=== PATIENT | female | born 1975 | race African-American/Black ===

== ENCOUNTER 2023-10-04 13:00 | Outpatient (RCR) | payer BC, SELFPAY | END 2023-11-30 11:37 | disposition home or self-care (01) | LOC: ANHDMC 13:00 | PROVIDERS: Visit Provider Nurse Practitioner Family | DX: E11.9 Type 2 diabetes mellitus without complications (principal); Z71.89 Other specified counseling | CPT/HCPCS: G0108 ==

== ENCOUNTER 2023-12-17 10:55 | Outpatient (RCR) | payer BC, SELFPAY | END 2024-03-13 09:26 | disposition home or self-care (01) | LOC: ANHDMC 10:55 | PROVIDERS: Visit Provider Nurse Practitioner Family | DX: E11.9 Type 2 diabetes mellitus without complications (principal); Z71.89 Other specified counseling | CPT/HCPCS: G0108 ==

== ENCOUNTER 2024-04-26 10:30 | Outpatient (RCR) | payer BC, SELFPAY | END 2024-06-22 23:59 | disposition home or self-care (01) | LOC: ANHDMC 10:30 | PROVIDERS: Visit Provider Nurse Practitioner Family | DX: E11.9 Type 2 diabetes mellitus without complications (principal); Z71.89 Other specified counseling | CPT/HCPCS: G0108 ==